=== PATIENT | male | born 1940 | race Caucasian/White ===

== ENCOUNTER 2018-02-24 07:30 | Inpatient (IN) ==
[2018-02-18 14:45] LABS: Appearance,Urine CLEAR; Bilirubin,Urine NEG (NEG); Color,Urine STRAW; Glucose,Urine (UA) NEGATIVE (NEG); Leukocyte Esterase,Urine NEG /uL (NEG); Protein,Urine NEG (NEG); Specific Gravity,Urine 1.006 (1.000-1.035); Urine Blood NEG mg/dL (<0.03); Urobilinogen,Urine NEG (NEG)
[2018-02-18 14:54] LABS: Basophils # (Auto) 0 K/mcL (0.0-0.3); Basophils % (Auto) 0.4 % (0.0-2.0); Blood Urea Nitrogen 18 mg/dl (8-23); Eosinophils # (Auto) 0.2 K/mcL (0.0-0.7); Eosinophils % (Auto) 3.3 % (0.0-7.0); Granulocytes % (Auto) 70.3 % (38.0-78.0); Lymphocytes % (Auto) 13.6 % (15.5-49.0); Mean Cell Volume 95.3 fL (80.0-100.0); Mean Corpuscular HGB Conc 33.5 g/dL (31.0-36.0); Monocytes # (Auto) 0.9 K/mcL (0.1-0.9); Monocytes % (Auto) 12.4 % (1.0-12.0); Platelet Count 289 K/mcL (140-440); RBC 4.36 M/mcL (4.50-5.90); Red Cell Distribution Width 13.4 % (11.5-14.5)
[~2018-02-24 07:30] MED LIST: 0.9 % SODIUM CHLORIDE 9 ML, KETOROLAC 30 MG, ROPIVACAINE HCL/PF 49.5 ML, EPINEPHrine 0.... IJ SCH; ACETAMINOPHEN 500 MG TABLET PO SCH; CELECOXIB 200 MG CAPSULE PO SCH; PREGABALIN 75 MG CAPSULE PO SCH; ceFAZolin 1 GM VIAL IV SCH; oxyCODONE 10 MG TAB.ER.12H PO SCH
[2018-02-24] MEDS ORDERED: MIDAZOLAM 2 MG/2 ML VIAL IV ONE (10:35)
[2018-02-24] MEDS ORDERED: PROPOFOL 200 MG/20 ML VIAL IV ONE (10:35)
[2018-02-24] MEDS ORDERED: PHENYLEPHRINE 10 MG/ML VIAL IV ONE (10:35)
[2018-02-24] MEDS ORDERED: GLYCOPYRROLATE 0.2 MG/ML VIAL IV ONE (10:35)
[2018-02-24] MEDS ORDERED: LIDOCAINE HCL/PF 100 MG/5 ML SYRINGE IV ONE (10:35)
[2018-02-24] MEDS ORDERED: PROMETHAZINE 12.5 MG SUPP.RECT PR ONE (10:35)
[2018-02-24] MEDS ORDERED: ONDANSETRON 4 MG/2 ML VIAL IV ONE (10:35)
[2018-02-24] MEDS ORDERED: KETAMINE 100 MG/ML ML IV ONE (10:35)
[2018-02-24] MEDS ORDERED: ePHEDrine 50 MG/ML AMPUL IV ONE (10:35)
[2018-02-24] MEDS ORDERED: TRANEXAMIC ACID 1,000 MG/10 ML VIAL IV ONE (10:35)
[2018-02-24] MEDS ORDERED: GENTAMICIN SULFATE 800 MG/20 ML VIAL IR ONE (11:11)
[2018-02-24] MEDS ORDERED: ONDANSETRON 4 MG/2 ML VIAL IV PRN ×2 (11:56→12:07)
[2018-02-24] MEDS ORDERED: METHOCARBAMOL 1,000 MG/10 ML VIAL IV PRN (11:56)
[2018-02-24] MEDS ORDERED: fentaNYL 100 MCG/2 ML VIAL IV PRN (11:56)
[2018-02-24] MEDS ORDERED: IPRATROPIUM/ALBUTEROL 3 ML AMPUL.NEB NEB PRN (11:56)
[2018-02-24] MEDS ORDERED: MEPERIDINE 25 MG/ML SYRINGE IV PRN (11:56)
[2018-02-24] MEDS ORDERED: LACTATED RINGERS 1,000 ML IV SCH (12:00)
[2018-02-24] MEDS ORDERED: ACETAMINOPHEN 325 MG TABLET PO PRN (12:07)
[2018-02-24] MEDS ORDERED: MAGNESIUM HYDROXIDE 30 ML ORAL.SUSP PO PRN (12:07)
[2018-02-24] MEDS ORDERED: TRANEXAMIC ACID 1,000 MG/10 ML VIAL IV SCH (12:07)
[2018-02-24] MEDS ORDERED: KETOROLAC 15 MG/ML VIAL IV PRN (12:07)
[2018-02-24] MEDS ORDERED: POLYETHYLENE GLYCOL 3350 17 GM PACKET PO PRN (12:07)
[2018-02-24] MEDS ORDERED: BENZOCAINE/MENTHOL 1 LOZENGE PO PRN (12:07)
[2018-02-24] MEDS ORDERED: HYDROmorphone 2 MG/ML VIAL IV PRN (12:07)
[2018-02-24] MEDS ORDERED: BISACODYL 10 MG SUPP.RECT PR PRN (12:07)
[2018-02-24] MEDS ORDERED: FLEETS ADULT ENEMA PR PRN (12:07)
--- NOTE | 2018-02-24 12:07 | Brief Operative Note ---
Date of procedure: 02/24/18 Pre-op diagnosis: right hip djd Post-op diagnosis: same Procedure: right hip djd severe Grafts/Implants: Yes Anesthesia: GETA Complications: none Surgeon: Bryson Del Cid Promotional Marketing Analyst: Chirag Park Estimated blood loss (cc): 50 Specimens Removed/Pathology: none sent Condition: stable Disposition: PACU
[2018-02-24] MEDS ORDERED: MELOXICAM 15 MG PO PRN (12:10)
--- NOTE | 2018-02-24 12:34 | XRay Report ---
CLINICAL INFORMATION: right total hip arthroplasty COMPARISON: None. FINDINGS: Single AP view from the OR shows femoral stem template and acetabular prosthetic cup to be anatomically positioned. Severe left degeneration noted. No soft tissue abnormality IMPRESSION: Intraoperative film as described Interpreted and Authenticated by: Dave Ludwig 02/24/18
--- NOTE | 2018-02-24 12:39 | Operative Note ---
DATE OF OPERATION: 02/24/2018 PREOPERATIVE DIAGNOSIS: Right hip degenerative arthritis. POSTOPERATIVE DIAGNOSIS: Right hip degenerative arthritis. PROCEDURE: Right total hip arthroplasty. SURGEON: Bryson Del Cid MD AIR HAMMER STRIPPER: Chirag Park PA-C. ANESTHESIA: General LMA anesthesia. COMPLICATIONS: None. IMPLANTS: A size 6 cemented stem with a ceramic head, neutral neck length and a 56 mm cup with a hooded liner. This was through a superior approach. The stem was cemented. ESTIMATED BLOOD LOSS: About 50 mL ANESTHESIA: Spinal with general LMA anesthesia by Dr. Brasher. DESCRIPTION OF PROCEDURE: The patient was brought to the operating room and put to sleep with general LMA anesthesia. Once asleep, the patient had the right leg confirmed as the operative site and a timeout was performed. Once we confirmed this both by consent form and x-rays, and initials we then proceeded with a right total hip arthroplasty. A superior approach was performed. Once we did this, we then exposed the capsule and we placed a Charnley retractor. Retractor was placed and we released the superior capsule and part of this piriformis. We dislocated the hip superiorly showing severe arthritis of the hip and femoral head. Once this was done, we made our neck cut at 30 mm from the center of hip rotation and then subluxed the hip anteriorly, reamed up the acetabulum after removing the labrum and reamed up to the size of 56, implanted a 56 cup with a 30 mm screw. We placed a hooded liner on the inferior portion just so this could be rotated to any instability. We noted that the hip was very stable through the range of motion. We placed the liner; it was very stable in the cup. We then prepared the femur, broached up to a size 6, trialed a size 6 with a neutral neck length. We took an x-ray showing the right leg to be longer by 4 mm. With this, we then countersunk the stem and reamed the calcar neck cut down 4 mm further. We then broached up, cemented into place a size 6 cemented stem with a 10 mm distal centralizer, compressed the cement and implanted until this cement was dry and kept the stem at 15 degrees of anteversion. We trialed the neutral neck length which was very stable up to 90 degrees. We irrigated thoroughly and placed a neutral neck length 36 mm ceramic head. This was reduced and irrigated thoroughly. We repaired the capsule with #1 Ethibond, closed the fascial layer after thorough irrigation and injecting the soft tissue with the post-injection formula. We closed the fascial layer with #1 Stratafix, closed the skin with #1 Stratafix and adhesive closure. The patient tolerated this well. There was no complication. Blood loss was about 50 mL. RBH:ad Job ID: [id number] Doc ID: [id number] Bryson Del Cid MD
[2018-02-24] MEDS: 0.45 % SODIUM CHLORIDE 1,000 ML IV SCH ×2 (13:36→23:18)
[2018-02-24] MEDS: 0.9 % SODIUM CHLORIDE 10 ML SYRINGE IV SCH ×2 (13:36→22:24)
[2018-02-24] MEDS: HYDROcodone/APAP 10/325MG TABLET PO PRN ×3 (14:32→23:35)
--- NOTE | 2018-02-24 14:45 | XRay Report ---
CLINICAL INFORMATION: Post-op Total Hip COMPARISON: None. FINDINGS: Right total hip prostheses is anatomically aligned. No osseous abnormality. Severe degenerative change in the left hip again noted. Mild degenerative change seen in both SI joints and moderate L4-5 and L5-S1 degenerative disc disease. Soft tissue swelling at the surgical site seen - as expected. IMPRESSION: Right total hip prosthesis - anatomic alignment. Interpreted and Authenticated by: Dave Ludwig 02/24/18
[2018-02-24] MEDS: ceFAZolin 1 GM VIAL IV SCH (17:40)
[2018-02-24] MEDS ORDERED: TEMAZEPAM 15 MG CAPSULE PO PRN (21:00)
[2018-02-24] MEDS ORDERED: SENNOSIDES 1 TABLET PO SCH (21:00)
[2018-02-24] MEDS ORDERED: ATORVASTATIN 20 MG TABLET PO SCH (21:00)
[2018-02-24] MEDS: DOCUSATE SODIUM 100 MG CAPSULE PO SCH (22:23)
[2018-02-24] MEDS: ASPIRIN 325 MG ENTERIC COATED TABLET PO SCH (22:23)
[2018-02-25] MEDS: ceFAZolin 1 GM VIAL IV SCH (03:32)
[2018-02-25] MEDS: HYDROcodone/APAP 10/325MG TABLET PO PRN ×4 (05:02→17:35)
[2018-02-25] MEDS: 0.9 % SODIUM CHLORIDE 10 ML SYRINGE IV SCH ×2 (06:27→13:43)
[2018-02-25] MEDS ORDERED: OMEPRAZOLE 20 MG CAPSULE PO SCH (07:30)
[2018-02-25] MEDS ORDERED: LEVOTHYROXINE 100 MCG TABLET PO SCH (07:30)
--- NOTE | 2018-02-25 07:36 | Orthopedic Progress Note ---
Subjective Patient information: Note initiated : 02/25/18 at 7:34 am Service Date, if different from initiated Date: [] Patient: Daniel Martinez 77 y/o M admitted on 02/24/18 for Right Total Hip Arthroplasty. Chief Complaint: [Pt is stable this morning on post operative day 1 without any significant concerns or complaints. Patients vital signs have remained stable. Patients dressing is dry and is grossly intact from a neurovascular and motor standpoint. Patients 10 point ROS is otherwise negative. ] Objective Vital signs: Vital Signs Temp Pulse Resp BP BP Pulse Ox 02/25/18 05:00 94 02/25/18 03:54 98.6 F 72 14 102/60 94 02/25/18 03:00 93 02/25/18 01:00 93 02/24/18 23:00 93 02/24/18 22:45 97.9 F 61 16 93/58 93 02/24/18 21:00 94 02/24/18 19:26 97.4 F 57 L 12 97/56 93 02/24/18 19:00 98 02/24/18 15:28 97.2 F 53 L 14 94/60 98 02/24/18 14:58 51 L 93/54 98 02/24/18 14:28 59 L 104/57 96 02/24/18 14:13 54 L 115/56 98 02/24/18 13:58 49 L 105/61 97 02/24/18 13:44 52 L 122/60 99 02/24/18 13:38 98 02/24/18 13:28 53 L 106/62 97 02/24/18 13:20 97.9 F 51 L 12 112/55 100 02/24/18 13:06 57 L 18 101/49 99 02/24/18 12:51 97.1 F 58 L 14 113/44 99 02/24/18 12:45 60 18 92/56 99 02/24/18 12:40 97.1 F 62 12 136/58 99 02/24/18 12:35 97.1 F 62 18 90/51 99 02/24/18 12:30 97.0 F 67 18 99/54 100 02/24/18 12:25 97.0 F 76 18 105/48 100 02/24/18 12:20 97.0 F 87 18 102/43 100 02/24/18 07:53 96.6 F L 67 16 130/73 95 Intake and Output 02/24/18 02/25/18 02/25/18 21:59 05:59 13:59 Intake Total 650 / 4670 2420 / 4670 Output Total 1350 / 1850 Balance 650 / 2820 1070 / 2820 Intake: IV 970 / 2570 Sodium Chloride 0.45% 1,000 ml 970 / 970 @ 100 mls/hr IV .Q10H HALI Rx#: [id number] Oral 650 / 2100 1450 / 2100 Output: Urine Catheter Amount 675 / 1025 Void Amount 675 / 675 Other: Meal Lunch Percent of Meal Consumed 100% Feeding Ability Independent Urine Appearance Clear Urine Color Dark Yellow Urine Odor Normal Weight 189 lb Intake & Output: Intake & Output 02/24/18 02/25/18 02/25/18 21:59 05:59 13:59 Intake Total 650 / 4670 2420 / 4670 Output Total 1350 / 1850 Balance 650 / 2820 1070 / 2820 Weight 189 lb Intake: IV 970 / 2570 Sodium Chloride 0.45% 1,000 ml 970 / 970 @ 100 mls/hr IV .Q10H HALI Rx#: [id number] Oral 650 / 2100 1450 / 2100 Output: Urine Catheter Amount 675 / 1025 Void Amount 675 / 675 Other: Meal Lunch Percent of Meal Consumed 100% Feeding Ability Independent Urine Appearance Clear Urine Color Dark Yellow Urine Odor Normal Incision: Yes healing Incision clean and dry: Yes Dressing: Yes clean Weight bearing status: full Neurological exam IM: Yes motor sensory intact, Yes neurovascular intact Extremities exam IM: Yes Foot pink and warm, Yes neurovascular intact - Labs CBC & BMP: 02/25/18 04:57 02/18/18 11:57 Labs: 02/25/18 02/18/18 04:57 11:57 Hgb 13.9 Hct 31.1 L 41.6 Assessment and Plan (1) Hx of total hip arthroplasty The patient has been educated regarding dressing care, Physical Therapy recommendations, home exercises, restrictions, and follow up appointments. The patient has had all necessary DME prescribed. The patient has remained relatively stable during their hospital course. Leave Dermabond patch intact until followup Status: Acute
--- NOTE | 2018-02-25 07:39 | Discharge Summary ---
Ortho Discharge - MARY - Patient Instructions Diet: Regular Diet Activity: activity as tolerated, weight bearing as tolerated Total Hip Protocol: Follow activity instructions as provided by Physical Therapy. Dressing Care: May shower in 2 days - Problem Maintenance (1) Hx of total hip arthroplasty Status: Acute - Follow Up Plan Follow Up Appointments: Chirag Park PA-C [Physician Supervisor Nut Processing] - 03/11/18 1:10 pm Disposition: Home, Self-Care Prognosis: Good Rehab Potential: Good I certify that the patient requires SNF services: No Overall status at discharge: patient is progressing back to baseline - Orders For Discharge Prescriptions: Aspirin [Ecotrin] 325 mg PO BID #60 tab.ec Docusate Sodium [Colace] 100 mg PO BID #60 capsule HYDROcodone/APAP 10/325MG [[place] 10-325Mg] 1 - 2 tab PO Q4HP PRN #75 tab PRN Reason: Pain Level 3-6
[2018-02-25] MEDS: ASPIRIN 325 MG ENTERIC COATED TABLET PO SCH (08:00)
[2018-02-25] MEDS: DOCUSATE SODIUM 100 MG CAPSULE PO SCH (08:00)
[2018-02-25] MEDS: 0.45 % SODIUM CHLORIDE 1,000 ML IV SCH (08:01)
[2018-02-25] MEDS ORDERED: LISINOPRIL/HCTZ 20/12.5MG TABLET PO SCH (09:00)
[2018-02-25] MEDS ORDERED: LISINOPRIL 20 MG TABLET PO SCH (09:00)
[2018-02-25] MEDS ORDERED: HYDROCHLOROTHIAZIDE 12.5 MG CAPSULE PO SCH (09:00)
== END 2018-02-25 17:48 | disposition home or self-care (01) | DRG 470 ==
LOC: MEDSUR 07:30
PROVIDERS: ADMIT Orthopaedic Surgery; ATTEND Orthopaedic Surgery

== ENCOUNTER 2019-03-16 10:45 | Inpatient (IN) ==
[2019-03-11 17:11] LABS: Appearance,Urine CLEAR; Bilirubin,Urine NEG (NEG); Color,Urine YELLOW; Culture Indicated,Urine NO; Glucose,Urine (UA) NEGATIVE (NEG); Ketones,Urine NEG (NEG); Leukocyte Esterase,Urine NEG /uL (NEG); Nitrate,Urine NEG (NEG); Protein,Urine NEG (NEG); Urine Blood NEG mg/dL (<0.03); Urobilinogen,Urine NEG (NEG)
[2019-03-11 19:09] LABS: Basophils # (Auto) 0.02 K/mcL (0.00-0.30); Basophils % (Auto) 0.3 % (0.0-2.0); Eosinophils # (Auto) 0.17 K/mcL (0.00-0.70); Eosinophils % (Auto) 2.6 % (0.0-7.0); Granulocytes % (Auto) 68.6 % (38.0-78.0); Hematocrit 38.9 % (40.1-51.0); Hemoglobin 13.1 g/dL (13.7-17.5); Lymphocytes # (Auto) 0.99 K/mcL (1.50-4.80); Lymphocytes % (Auto) 15.4 % (15.5-49.0); Mean Cell Volume 95.1 fL (80.0-100.0); Mean Corpuscular HGB Conc 33.7 g/dL (31.0-36.0); Mean Platelet Volume 8.8 fL (7.4-10.4); Monocytes # (Auto) 0.84 K/mcL (0.10-0.90); Monocytes % (Auto) 13.1 % (1.0-12.0); Platelet Count 295 K/mcL (140-440); RBC 4.09 M/mcL (4.63-6.08); Red Cell Distribution Width 13.2 % (11.5-14.5); WBC 6.4 K/mcL (4.50-11.00)
[2019-03-11 19:18] LABS: INR 0.9 (0.9-1.1); Prothrombin Time 12.2 sec (11.9-14.5)
[2019-03-11 19:25] LABS: Blood Urea Nitrogen 21 mg/dl (8-23); Calcium 9.8 mg/dl (8.6-10.4); Carbon Dioxide 25 mmol/L (22-30); Chloride 97 mmol/L (96-108); Glomerular Filtration Rate 52; Glucose 97 mg/dL (70-105)
[~2019-03-16 10:45] MED LIST changes: -0.9 % SODIUM CHLORIDE 9 ML, KETOROLAC 30 MG, ROPIVACAINE HCL/PF 49.5 ML, EPINEPHrine 0.... IJ SCH; +IPRATROPIUM/ALBUTEROL 3 ML AMPUL.NEB NEB PRN; +SCOPOLAMINE 1 PATCH PATCH TOPICAL PRN; -ceFAZolin 1 GM VIAL IV SCH; +ceFAZolin 2 GM in DEXTROSE 5% IN WATER 50 ML IV SCH
[2019-03-16] MEDS ORDERED: GENTAMICIN SULFATE 800 MG/20 ML VIAL IR ONE (12:24)
[2019-03-16] MEDS ORDERED: KETAMINE 100 MG/ML ML IV ONE (13:00)
[2019-03-16] MEDS ORDERED: GLYCOPYRROLATE 0.2 MG/ML VIAL IV ONE (13:00)
[2019-03-16] MEDS ORDERED: ROPIVACAINE HCL/PF 30 ML VIAL IJ ONE (13:00)
[2019-03-16] MEDS ORDERED: ePHEDrine 50 MG/ML AMPUL IV ONE (13:00)
[2019-03-16] MEDS ORDERED: PROPOFOL 200 MG/20 ML VIAL IV ONE (13:00)
[2019-03-16] MEDS ORDERED: ONDANSETRON 4 MG/2 ML VIAL IV ONE (13:00)
[2019-03-16] MEDS ORDERED: SUCCINYLCHOLINE 20 MG/ML ML IV ONE (13:00)
[2019-03-16] MEDS ORDERED: DEXAMETHASONE 10 MG/ML VIAL IV ONE (13:00)
[2019-03-16] MEDS ORDERED: LIDOCAINE HCL/PF 100 MG/5 ML SYRINGE IV ONE (13:00)
[2019-03-16] MEDS ORDERED: fentaNYL 100 MCG/2 ML VIAL IV ONE (13:00)
[2019-03-16] MEDS ORDERED: TRANEXAMIC ACID 1,000 MG/10 ML VIAL IV ONE ×2 (13:00→14:29)
[2019-03-16] MEDS ORDERED: PHENYLEPHRINE 10 MG/ML VIAL IV ONE (13:00)
[2019-03-16] MEDS ORDERED: MEPERIDINE 25 MG/ML SYRINGE IV PRN (14:12)
[2019-03-16] MEDS ORDERED: diphenhydrAMINE 50 MG/ML VIAL IV PRN (14:12)
[2019-03-16] MEDS ORDERED: fentaNYL 100 MCG/2 ML VIAL IV PRN (14:12)
[2019-03-16] MEDS ORDERED: LACTATED RINGERS 250 ML IV PRN (14:12)
[2019-03-16] MEDS ORDERED: NALOXONE HCL 0.4 MG/ML VIAL IV PRN (14:12)
[2019-03-16] MEDS ORDERED: PROMETHAZINE 25 MG/ML VIAL IV PRN (14:12)
[2019-03-16] MEDS ORDERED: ONDANSETRON 4 MG/2 ML VIAL IV PRN ×2 (14:12→14:29)
[2019-03-16] MEDS ORDERED: IPRATROPIUM/ALBUTEROL 3 ML AMPUL.NEB NEB PRN (14:12)
[2019-03-16] MEDS ORDERED: LACTATED RINGERS 1,000 ML IV SCH (14:15)
--- NOTE | 2019-03-16 14:24 | Brief Operative Note ---
Date of procedure: 03/16/19 Pre-op diagnosis: Left shoulder rca and bicep tendonitis Post-op diagnosis: same Procedure: Left shoulder reverse tsa and bicep tenodesis Grafts/Implants: Yes Anesthesia: GETA Complications: none Surgeon: Bryson Del Cid Fun House Attendant: Chirag Park Estimated blood loss (cc): 50 Specimens Removed/Pathology: none sent Condition: stable Disposition: PACU
[2019-03-16] MEDS ORDERED: FLEETS ADULT ENEMA PR PRN (14:29)
[2019-03-16] MEDS ORDERED: BISACODYL 10 MG SUPP.RECT PR PRN (14:29)
[2019-03-16] MEDS ORDERED: BENZOCAINE/MENTHOL 1 LOZENGE PO PRN (14:29)
[2019-03-16] MEDS ORDERED: POLYETHYLENE GLYCOL 3350 17 GM PACKET PO PRN (14:29)
[2019-03-16] MEDS ORDERED: MAGNESIUM HYDROXIDE 30 ML ORAL.SUSP PO PRN (14:29)
--- NOTE | 2019-03-16 14:55 | Operative Note ---
DATE OF OPERATION: 03/16/2019 PREOPERATIVE DIAGNOSES: Left shoulder rotator cuff arthropathy and biceps tendinopathy. POSTOPERATIVE DIAGNOSES: Left shoulder rotator cuff arthropathy and biceps tendinopathy. PROCEDURE: Left reverse total shoulder and biceps tenodesis. SURGEON: Bryson Del Cid M.D. CLINICAL TRIALS SYSTEMS ADMINISTRATOR: Chirag Park PA-C. The PA's assistance was required for the safe and efficient completion of the entire case. This provider's expertise and technical skill were required throughout the case. The PA assisted with preoperative coordination, intraoperative retraction, wound closure, dressing and splint application, as well as postoperative documentation and care coordination. ANESTHESIA: General LMA anesthesia. ESTIMATED BLOOD LOSS: About 100 mL. COMPLICATIONS: None. DESCRIPTION OF PROCEDURE: The patient was brought to the operating room and put to sleep with general LMA anesthesia. Once asleep, the patient had the left shoulder sterilely prepped and draped in the usual sterile fashion once we confirmed this as the operative side by initials, consent form, and x-rays. We made a deltopectoral approach, retracting the deltoid laterally. We then released the subscap medially. Retractors were placed. We then dislocated the humeral head and made our neck cut at 20 degrees of retroversion, 130 degree angle. Once this was done, we then removed the bony fragment noting that there was quite a bit of rotator cuff damage in the supraspinatus and infraspinatus. We subluxed the humeral head posteriorly and then performed a 360-degree capsular release, as well as the release of the biceps tendon. We placed a pin centrally. This was reamed up to the size 40. We then implanted a metaglene with a 40 mm central screw and a 36 mm, a 28 mm, and a 24 mm. We then placed the metaglene which was a 40 mm glenosphere with 2 mm eccentricity and 2 mm of offset. Once this was tapped into place, we broached up on the humeral side. Once done, we were able to then trial an 11 stem with a 4 mm poly insert. This fit very nicely. We then placed the final implant, a size 11 stem with a 4 mm poly. This was reduced. We irrigated thoroughly. We took the shoulder through the full range of motion, very stable through the arc of motion with abduction and internal rotation. We then irrigated thoroughly once more to make sure there was no bleeding. We then repaired the biceps tendon to the pectoralis major using a #2 Ethibond. Once this was done, we then closed the interval with Stratafix, closed the skin with Stratafix and adhesive closure. A DonJoy sling was fitted and given to the patient. RBH:chelle Job ID: [id number] Doc ID: [id number] Bryson Del Cid MD
--- NOTE | 2019-03-16 15:29 | XRay Report ---
CLINICAL INFORMATION: Left total shoulder COMPARISON: None. FINDINGS: Left total shoulder prostheses is anatomically aligned. No osseous abnormality. Para-articular soft tissue swelling and gas seen in the expected IMPRESSION: Negative Interpreted and Authenticated by: Dave Ludwig 03/16/19
[2019-03-16] MEDS: HYDROcodone/APAP 10/325MG TABLET PO PRN ×2 (15:47→23:22)
--- NOTE | 2019-03-16 16:09 | Discharge Summary ---
Ortho Discharge - TSA - Patient Instructions Diet: Regular Diet Activity: activity as tolerated, weight bearing as tolerated Total Shoulder Protocol: Leave immobilizer in place except for bathing and ROM. Abduction pillow. Continue to wear sling until seen by physician. Codman Pendulum : These exercises use momentum produced by your body to move your shoulder joint. Bend your knees and shift your weight to your front leg, then back, allowing your arm to swing in the same directions. Using the same technique, alternately shift your weight between your right and left legs, allowing your arm to swing from side to side. These exercises are also performed in counterclockwise and clockwise circular motions. Typically these exercises are performed several times per day, for a set number repetitions or minutes, such as 20 times in a row or 5 minutes at a time. Dressing Care: May shower in 2 days - Follow Up Plan Follow Up Appointments: Chirag Park PA-C [Physician Barber Stylist] - 03/16/19 1:40 pm Disposition: Home, Self-Care Prognosis: Good Rehab Potential: Good I certify that the patient requires SNF services: No Overall status at discharge: patient is progressing back to baseline - Orders For Discharge Prescriptions: Docusate Sodium [Colace] 100 mg PO BID #60 cap Transmission Status: Pending to [facility] HYDROcodone/APAP 10/325MG [[place] 10-325Mg] 1 - 2 tab PO Q4HP PRN #75 tab PRN Reason: Per Pain Protocol Prescription Printed
[2019-03-16] MEDS ORDERED: SENNOSIDES 1 TABLET PO SCH (21:00)
[2019-03-16] MEDS ORDERED: ATORVASTATIN 20 MG TABLET PO SCH (21:00)
[2019-03-16] MEDS: DOCUSATE SODIUM 100 MG CAPSULE PO SCH (21:04)
[2019-03-16] MEDS: 0.9 % SODIUM CHLORIDE 10 ML SYRINGE IV SCH (21:05)
[2019-03-17] MEDS: 0.9 % SODIUM CHLORIDE 10 ML SYRINGE IV SCH ×2 (06:02→14:54)
[2019-03-17 06:39] LABS: Hematocrit 32.2 % (40.1-51.0); Hemoglobin 10.7 g/dL (13.7-17.5)
[2019-03-17] MEDS ORDERED: OMEPRAZOLE 20 MG CAPSULE PO SCH (07:30)
[2019-03-17] MEDS ORDERED: LEVOTHYROXINE 100 MCG TABLET PO SCH (07:30)
[2019-03-17] MEDS: DOCUSATE SODIUM 100 MG CAPSULE PO SCH (08:23)
[2019-03-17] MEDS ORDERED: HYDROCHLOROTHIAZIDE 12.5 MG CAPSULE PO SCH (09:00)
[2019-03-17] MEDS ORDERED: LISINOPRIL 20 MG TABLET PO SCH (09:00)
[2019-03-17] MEDS: HYDROcodone/APAP 10/325MG TABLET PO PRN ×2 (10:47→14:51)
== END 2019-03-17 15:10 | disposition home or self-care (01) | DRG 483 ==
LOC: MEDSUR 10:51
PROVIDERS: ADMIT Orthopaedic Surgery; ATTEND Orthopaedic Surgery